=== PATIENT | female | born 1990 | race Caucasian/White ===

== ENCOUNTER 2019-02-19 09:00 | Observation (INO) | payer OTHER ==
[~2019-02-19] VITALS: Ht 165 cm; Wt 85.0 kg
[2019-02-19 10:04] VITALS: BP 115/69
== END 2019-02-19 10:15 | disposition home or self-care (01) ==
LOC: 4S 09:00
PROVIDERS: ADMIT Obstetrics & Gynecology; ATTEND Obstetrics & Gynecology
DX: Z34.93 Encounter for supervision of normal pregnancy, unspecified, third trimester (principal); Z3A.38 38 weeks gestation of pregnancy
CPT/HCPCS: 81002; G0378

== ENCOUNTER 2019-02-28 15:20 | Inpatient (IN) | payer OTHER ==
[~2019-02-28] VITALS: Ht 165 cm; Wt 84.8 kg
[2019-02-28] MEDS ORDERED: OXYTOCIN 30 UNITS/LACT RINGERS 500 ML IV ONE (16:25)
[2019-02-28] MEDS ORDERED: RINGERS SOLUTION,LACTATED 1,000 ML IV PRN (16:25)
[2019-02-28] MEDS ORDERED: METHYLERGONOVINE MALEATE 0.2 MG/ML VIAL IM PRN (16:30)
[2019-02-28] MEDS ORDERED: MISOPROSTOL 25 MCG TABLET PR ONE (16:30)
[2019-02-28 17:04] LABS: BASOPHILS % (AUTO) 0.2 % (0.0-2.0); EOSINOPHILS % (AUTO) 1.2 % (1.0-6.0); HEMATOCRIT 39.9 % (36-46); HEMOGLOBIN 13.5 g/dL (12.0-16.0); LYMPHOCYTES % (AUTO) 21.7 % (22.0-44.0); MEAN CORPUSCULAR HEMOGLOBIN 32.2 pg (26.0-34.0); MEAN CORPUSCULAR HGB CONC 33.8 G/dL (31.0-37.0); MEAN CORPUSCULAR VOLUME 95 fL (80-100); MONOCYTES # (AUTO) 0.8 K/uL (0.1-1.0); MONOCYTES % (AUTO) 8.7 % (2.0-9.0); NEUTROPHILS # (AUTO) 6.2 K/uL (1.8-7.7); NEUTROPHILS % (AUTO) 68.2 % (40.0-70.0); PLATELET COUNT (AUTO)-OB 204 K/uL (150-450); RED BLOOD CELL COUNT(AUTO) 4.18 MIL/uL (4.00-5.20); RED CELL DISTRIBUTION WIDTH 13.6 % (11.5-14.5)
[2019-02-28] MEDS: RINGERS SOLUTION,LACTATED 1,000 ML IV SCH ×2 (17:12→21:00)
[2019-02-28 17:45] VITALS: BP 121/75
[2019-02-28] MEDS ORDERED: AMPICILLIN SODIUM 2 GM/NS 100 ML IV ONE (17:45)
[2019-02-28] MEDS ORDERED: PREN-217 PO (19:03)
[2019-02-28] MEDS ORDERED: OXYGEN THERAPY IH SCH (20:00)
[2019-02-28] MEDS ORDERED: ZALEPLON 5 MG CAPSULE PO PRN (20:45)
[2019-02-28] MEDS ORDERED: AMPICILLIN SODIUM 1 GM/NS 50 ML IV SCH (22:00)
[2019-03-01] MEDS: RINGERS SOLUTION,LACTATED 1,000 ML IV SCH ×3 (04:01→12:40)
[2019-03-01] MEDS: NALBUPHINE HCL 10 MG/ML VIAL IVP PRN ×2 (04:02→07:41)
[2019-03-01] MEDS ORDERED: LIDOCAINE/PF 2% 5 ML VIAL ONE (08:01)
[2019-03-01] MEDS ORDERED: ROPIVACAINE HCL/PF 0.2% 100 ML ED ONE (08:02)
[2019-03-01] MEDS ORDERED: ROPIVACAINE HCL/PF 0.2% 100 ML ED PRN (08:30)
[2019-03-01] MEDS ORDERED: DiphenhydrAMINE HCL 50 MG/ML VIAL IVP PRN (08:30)
[2019-03-01] MEDS ORDERED: ONDANSETRON HCL 4 MG/2 ML VIAL IVP PRN (08:30)
[2019-03-01] MEDS ORDERED: NALBUPHINE HCL 10 MG/ML VIAL IVP PRN (08:30)
[2019-03-01] MEDS ORDERED: AMPICILLIN SODIUM 2 GM/NS 100 ML IV ONE (09:15)
[2019-03-01] MEDS ORDERED: AMPICILLIN SODIUM 1 GM/NS 50 ML IV SCH (13:15)
[2019-03-01] MEDS ORDERED: OXYTOCIN 30 UNITS/LACT RINGERS 500 ML IV ONE (16:33)
[2019-03-01] MEDS ORDERED: LANOLIN 7 GM OINTMENT TP PRN (16:45)
[2019-03-01] MEDS ORDERED: OxyCODONE HCL/ACETAMINOPHEN 5-325 MG TABLET PO PRN ×2 (16:45)
[2019-03-01] MEDS ORDERED: BENZOCAINE 20%/MENTHOL 56 GM SPRAY CANISTER TP PRN (16:45)
[2019-03-01] MEDS ORDERED: LIDOCAINE/PF 1% 30 ML VIAL INJ PRN (16:45)
[2019-03-01] MEDS ORDERED: IBUPROFEN 800 MG TABLET PO PRN (16:45)
[2019-03-01] MEDS ORDERED: GLYCERIN/WITCH HAZEL LEAF 40 PADS JAR TP PRN (16:45)
[2019-03-01] MEDS: MAGNESIUM HYDROXIDE SUSPENSION 30 ML UDCUP PO PRN (20:45)
[2019-03-02 09:19] LABS: BASOPHILS % (AUTO) 0.3 % (0.0-2.0); EOSINOPHILS % (AUTO) 0.9 % (1.0-6.0); HEMATOCRIT 35.9 % (36-46); HEMOGLOBIN 12.2 g/dL (12.0-16.0); LYMPHOCYTES # (AUTO) 2.2 K/uL (1.0-4.8); LYMPHOCYTES % (AUTO) 15.6 % (22.0-44.0); MEAN CORPUSCULAR HEMOGLOBIN 32.6 pg (26.0-34.0); MEAN CORPUSCULAR HGB CONC 33.9 G/dL (31.0-37.0); MEAN CORPUSCULAR VOLUME 96 fL (80-100); MONOCYTES # (AUTO) 0.9 K/uL (0.1-1.0); MONOCYTES % (AUTO) 6.1 % (2.0-9.0); NEUTROPHILS # (AUTO) 11.1 K/uL (1.8-7.7); NEUTROPHILS % (AUTO) 77.1 % (40.0-70.0); PLATELET COUNT (AUTO)-OB 198 K/uL (150-450); RED BLOOD CELL COUNT(AUTO) 3.74 MIL/uL (4.00-5.20); RED CELL DISTRIBUTION WIDTH 13.4 % (11.5-14.5)
[2019-03-02] MEDS: MAGNESIUM HYDROXIDE SUSPENSION 30 ML UDCUP PO PRN (09:42)
[2019-03-02] MEDS ORDERED: IBUP-2071 PO (16:14)
== END 2019-03-02 17:50 | disposition home or self-care (01) | DRG 807 ==
LOC: OBSVTOIN 15:20 → 4S 15:20
PROVIDERS: ADMIT Obstetrics & Gynecology; ATTEND Obstetrics & Gynecology
PROC: 10D07Z6 Extraction of Products of Conception, Vacuum, Via Natural or Artificial Opening (ICD-10-PCS; principal; 2019-03-01)
PROC: 0KQM0ZZ Repair Perineum Muscle, Open Approach (ICD-10-PCS; 2019-03-01)
PROC: 00HU33Z Insertion of Infusion Device into Spinal Canal, Percutaneous Approach (ICD-10-PCS; 2019-03-01)
PROC: 3E0R3BZ Introduction of Anesthetic Agent into Spinal Canal, Percutaneous Approach (ICD-10-PCS; 2019-03-01)
PROC: 10907ZC Drainage of Amniotic Fluid, Therapeutic from Products of Conception, Via Natural or Artificial Opening (ICD-10-PCS; 2019-03-01)
DX: O76 Abnormality in fetal heart rate and rhythm complicating labor and delivery (principal); Z37.0 Single live birth; O70.1 Second degree perineal laceration during delivery; Z3A.39 39 weeks gestation of pregnancy
CPT/HCPCS: 86850; 86900; 86901; J0290; J2300; J2590; J2795; J3490; J7120